=== PATIENT | female | born 1940 | race Caucasian/White ===

== ENCOUNTER 2017-03-19 07:43 | Day surgery (SDC) | payer MEDICARE, OTHER ==
[2017-03-19] MEDS ORDERED: MIDAZOLAM 2 MG/2 ML INJ ONE (08:13)
[2017-03-19] MEDS ORDERED: GLYCOPYRROLATE INJ 0.4 MG/2 ML VIAL ONE (08:13)
[2017-03-19] MEDS ORDERED: NALOXONE HCL INJ/PF 0.4 MG/1 ML SDV ONE (08:13)
[2017-03-19] MEDS ORDERED: ONDANSETRON HCL INJ/PF 4 MG/2 ML SDV ONE (08:13)
[2017-03-19] MEDS ORDERED: FENTANYL CITRATE INJ/PF 100 MCG/2 ML AMPUL ONE (08:14)
[2017-03-19] MEDS ORDERED: EPINEPHRINE INJ 1 MG/10 ML DISP.SYRIN ONE (08:14)
[2017-03-19] MEDS ORDERED: FLUMAZENIL INJ 0.5 MG/5 ML VIAL IV ONE (08:14)
[2017-03-19] MEDS ORDERED: GLUCAGON,HUMAN RECOMB 1 MG INJ ONE (08:14)
--- NOTE | 2017-03-19 09:06 | Operative Report ---
Operative Report DATE OF SURGERY: 03/19/17 PREOPERATIVE DIAGNOSIS: 1. Personal history of breast carcinoma. 2. Screening for colon carcinoma POSTOPERATIVE DIAGNOSIS: External hemorrhoids, collapsed. Normal colon OPERATION: Total colonoscopy to cecum with photo documentation SURGEON: GELY KELLY ANESTHESIA: Moderate Sedation TISSUE REMOVED OR ALTERED: None COMPLICATIONS: None ESTIMATED BLOOD LOSS: None INTRAOPERATIVE FINDINGS: See below PROCEDURE: Obtaining informed consent the patient was taken from the preoperative holding area to the main endoscopy suite where monitoring devices were attached to the patient. Plan and surgical timeout were conducted The patient was placed in the left lateral decubitus position with knees to chest. A perianal examination was performed. There was no visible or palpable anorectal pathology. Sphincter tone was felt to be normal. There are moderate collapsed external hemorrhoids. The flexible adult colonoscope was advanced through the anal rectal canal, all the way to the cecum. Utilization of the cecum was achieved and the ileocecal valve, the appendiceal orifice and transillumination of the anterior abdominal wall. Were taken. This was an excellent study on the well-prepped bowel. The colonoscope was withdrawn slowly and methodically checked and the mucosa carefully. There was no evidence of tumor, stricture, bleeding or polyp. There was no evidence of diverticuloses. The scope was slowly withdrawn through the anal rectal canal. Complete visualization of the rectum was achieved with photodocumentation. The scope was withdrawn to the patient's anus. The patient tolerated the procedure well and was taken to the recovery area in stable condition. Per surveillance guidelines patient will be appropriate candidate for follow-up colonoscopy in 7-10 years.
--- NOTE | 2017-03-19 09:08 | PDOC DISCHARGE SUMMARY ---
Discharge Summary (SDC) - Discharge Final Diagnosis: 1. External hemorrhoids 2. Normal colon Date of Surgery: 03/19/17 Discharge Date: 03/19/17 Condition: Good Treatment or Instructions: [facility] [address] [address] POST ENDOSCOPY DISCHARGE INSTRUCTIONS 1. Diet: Start clear liquids that a regular diet as tolerated. 2. Resume all preoperative medications. All oral anticoagulants and aspirins can be resumed 24 hours after procedure. 3. If a polypectomy was performed some bleeding per rectum may occur. This should stop within 3 days. If not, please contact the office. 4. If you had a colonoscopy you may experience some bloating and delayed return of normal bowel function for several days, your regular bowel movement pattern should resume within a week. 5. Please contact [facility] at to make an appointment with Dr. Swartz for 1 to 3 weeks following procedure. 6. If you have any questions or concerns regarding your care,treatment plan or follow up, please contact our office. 7. Per clinical guidelines we recommend you undergo a repeat colonoscopy in 7 - 10 years Discharge Diet: As Tolerated Discharge Activity: Activity As Tolerated Home Care Assistance: None Needed Report the Following to Your Physician Immediately: Shortness of Breath, Increase in Pain, Fever over 101 Degrees
[2017-03-19 10:04] VITALS: BP 110/68
== END 2017-03-19 10:05 | disposition home or self-care (01) ==
LOC: END 07:43
PROVIDERS: ATTEND Surgery
PROC: 0DJD8ZZ Inspection of Lower Intestinal Tract, Via Natural or Artificial Opening Endoscopic (ICD-10-PCS; principal; 2017-03-19 08:15)
DX: Z12.11 Encounter for screening for malignant neoplasm of colon (principal); K64.4 Residual hemorrhoidal skin tags; E78.00 Pure hypercholesterolemia, unspecified; M79.7 Fibromyalgia; I10 Essential (primary) hypertension; Z85.828 Personal history of other malignant neoplasm of skin
CPT/HCPCS: 45378; G0121; J0171; J1610; J2250; J2310; J2405; J3010; J3490

== ENCOUNTER 2019-05-26 10:38 | Emergency (ER) | payer MEDICARE, OTHER ==
--- NOTE | 2019-05-26 12:06 | ER Document Report ---
ED Medical Screen (RME) - General Chief Complaint: Fall Injury Stated Complaint: HEAD LACERATION Time Seen by Provider: 05/26/19 11:57 Primary Care Provider: LISSETTE FREEMAN MD [Primary Care Provider] - Follow up as needed Information source: Patient Notes: 78-year-old female presented to ED for complaint of pain to the back of her head. She states she was trying to put the cat out when the count got between her legs trip and her causing her to fall hitting her head on the side of the bed causing a laceration to the back of her head. Patient is alert and oriented at this time. The knee is under control at this time. Patient is alert oriented respirations regular nonlabored. I have greeted and performed a rapid initial assessment of this patient. A comprehensive ED assessment and evaluation of the patient, analysis of test results and completion of medical decision making process will be conducted by an additional ED providers. TRAVEL OUTSIDE OF THE [place] IN LAST 30 DAYS: No - Related Data Allergies/Adverse Reactions: codeine Allergy (Intermediate, Verified 03/19/17 08:07) N/V coffee (Coffea arabica) Allergy (Intermediate, Verified 03/19/17 08:07) N/V Past Medical History - Social History Chew tobacco use (# tins/day): No Frequency of alcohol use: None Drug Abuse: None - Past Medical History Cardiac Medical History: Reports: Hx Hypertension Denies: Hx Heart Attack Pulmonary Medical History: Denies: Hx Asthma, Hx Bronchitis, Hx COPD, Hx Pneumonia Neurological Medical History: Denies: Hx Cerebrovascular Accident, Hx Seizures Musculoskeltal Medical History: Reports Hx Arthritis Past Surgical History: Denies: Hx Hysterectomy - Immunizations Hx Diphtheria, Pertussis, Tetanus Vaccination: Yes Physical Exam - Vital signs Vitals: Temp Pulse Resp BP Pulse Ox 98.1 F 74 16 174/99 H 100 05/26/19 10:45 05/26/19 10:45 05/26/19 10:45 05/26/19 10:45 05/26/19 10:45 Course - Vital Signs Vital signs: Temp Pulse Resp BP Pulse Ox 97.8 F 74 15 165/94 H 99 05/26/19 11:55 05/26/19 11:55 05/26/19 11:55 05/26/19 11:55 10/17/19 11:55 Doctor's Discharge - Discharge Referrals: LISSETTE FREEMAN MD [Primary Care Provider] - Follow up as needed
[2019-05-26] MEDS ORDERED: LIDOCAINE 1%/EPINEPHRINE INJ 20 ML VIAL INJ ONE (12:52)
--- NOTE | 2019-05-26 12:58 | RADIOLOGY REPORT (SQ) ---
EXAM DESCRIPTION: CT HEAD WITHOUT COMPLETED DATE/TIME: 05/26/2019 12:42 pm REASON FOR STUDY: fell hit head on the bed COMPARISON: None. TECHNIQUE: Axial images acquired through the brain without intravenous contrast. Images reviewed wi th bone, brain and subdural windows. Additional sagittal and coronal reconstructions were generated. Images stored on PACS. All CT scanners at this facility use dose modulation, iterative reconstruction, and/or weight based d osing when appropriate to reduce radiation dose to as low as reasonably achievable (ALARA). [facility]: Dose Right [facility]: CareDose [facility]: Dose Right [facility]: Teradose 4D [facility]: Smart NEURONIX RADIATION DOSE: CT Rad equipment meets quality standard of care and radiation dose reduction techniq ues were employed. CTDIvol: 53.2 mGy. DLP: 964 mGy-cm. mGy. LIMITATIONS: None. FINDINGS: VENTRICLES: Normal size and contour. CEREBRUM: No masses. No hemorrhage. No midline shift. No evidence for acute infarction. Extensive areas of low density in the white matter most likely chronic small vessel ischemic changes. CEREBELLUM: No masses. No hemorrhage. No alteration of density. No evidence for acute infarction. EXTRAAXIAL SPACES: No fluid collections. No masses. ORBITS AND GLOBE: No intra- or extraconal masses. Normal contour of globe without masses. CALVARIUM: No fracture. PARANASAL SINUSES: No fluid or mucosal thickening. SOFT TISSUES: No mass or hematoma. OTHER: No other significant finding. IMPRESSION: No acute intracranial pathology. Advanced periventricular and deep white matter hypoden sity, which may reflect small vessel white matter disease or alternately sequelae of demyelinating di sease such as multiple sclerosis. Correlate with clinical history if present. EVIDENCE OF ACUTE STROKE: NO. COMMENT: Quality ID # [id number]: Final reports with documentation of one or more dose reduction techniques (e.g., Automated exposure control, adjustment of the mA and/or kV according to patient size, use of iterative reconstruction technique) TECHNICAL DOCUMENTATION: JOB ID: [id number] [employer]- All Rights Reserved Reading location - IP/workstation name: [email or web address]
--- NOTE | 2019-05-26 13:00 | ER Document Report ---
ED Fall - General Chief Complaint: Fall Injury Stated Complaint: HEAD LACERATION Time Seen by Provider: 05/26/19 11:57 Primary Care Provider: LISSETTE FREEMAN MD [Primary Care Provider] - Follow up as needed Information source: Patient TRAVEL OUTSIDE OF THE [place] IN LAST 30 DAYS: No - HPI Patient complains to provider of: fall Occurred: Just prior to arrival - pt. fell after tripping on her cat earlier this am and hit her head, causing a laceration. There was no LOC. Pt. is currently not on blood thinner. She is UTD on tetanus. - Related data Allergies/Adverse Reactions: codeine Allergy (Intermediate, Verified 03/19/17 08:07) N/V coffee (Coffea arabica) Allergy (Intermediate, Verified 03/19/17 08:07) N/V Past Medical History - General Information source: Patient - Social History Smoking Status: Never Smoker Chew tobacco use (# tins/day): No Frequency of alcohol use: None Drug Abuse: None Family History: None Patient has suicidal ideation: No Patient has homicidal ideation: No - Past Medical History Cardiac Medical History: Reports: Hx Hypertension Denies: Hx Heart Attack Pulmonary Medical History: Denies: Hx Asthma, Hx Bronchitis, Hx COPD, Hx Pneumonia Neurological Medical History: Denies: Hx Cerebrovascular Accident, Hx Seizures Musculoskeletal Medical History: Reports Hx Arthritis Past Surgical History: Denies: Hx Hysterectomy - Immunizations Hx Diphtheria, Pertussis, Tetanus Vaccination: Yes Review of Systems - Review of Systems Constitutional: No symptoms reported EENT: No symptoms reported Cardiovascular: No symptoms reported Respiratory: No symptoms reported Gastrointestinal: No symptoms reported Genitourinary: No symptoms reported Female Genitourinary: No symptoms reported Musculoskeletal: No symptoms reported Neurological/Psychological: No symptoms reported -: Yes All other systems reviewed and negative Physical Exam - Vital signs Vitals: Temp Pulse Resp BP Pulse Ox 98.1 F 74 16 174/99 H 100 05/26/19 10:45 05/26/19 10:45 05/26/19 10:45 05/26/19 10:45 05/26/19 10:45 - General General appearance: Appears well In distress: None - HEENT Head: Open wounds - there is a 4 cm laceration in the occipital aspect of the scalp. Bleeding is controlled. Pupils: PERRL Ears: Normal Tympanic membrane: Normal Nasal: Normal Pharynx: Normal Neck: Normal - Respiratory Respiratory status: No respiratory distress Breath sounds: Normal - Cardiovascular Rhythm: Regular Heart sounds: Normal auscultation Murmur: No - Abdominal Inspection: Normal Bowel sounds: Normal Tenderness: Nontender Organomegaly: No organomegaly - Back Back: Normal, Nontender - Extremities General upper extremity: Normal inspection General lower extremity: Normal inspection - Neurological Neuro grossly intact: Yes Cognition: Normal Orientation: AAOx4 Speech: Normal Course - Re-evaluation Re-evalutation: 05/26/19 13:14 I have discussed with this pt. about her L thyroid lesion found on CT and she will F/u with her PCP (U/S has been recommended) - Vital Signs Vital signs: Temp Pulse Resp BP Pulse Ox 97.8 F 74 15 165/94 H 99 05/26/19 11:55 05/26/19 11:55 05/26/19 11:55 05/26/19 11:55 05/26/19 11:55 - Diagnostic Test Radiology reviewed: Reports reviewed - ct head and c-spine - neg Procedures - Laceration/Wound Repair Head Time completed: 14:01 Wound length (cm): 6 Wound's Depth, Shape: Superficial Laceration pre-procedure: Sterile PPE donned, Sterile drapes applied, Shur-Clens applied Anesthetic type: 1% Lidocaine w/epi Volume Anesthetic (mLs): 2 Wound explored: Clean Irrigated w/ Saline (mLs): 500 Wound Repaired With: Ulices Number of Sutures: 11 Post-procedure wound care: Sterile dressing applied Complications: No Discharge - Discharge Clinical Impression: Laceration of head Qualifiers: Encounter type: initial encounter Location of open wound of head: scalp Foreign body presence: without foreign body Qualified Code(s): S01.01XA - Laceration without foreign body of scalp, initial encounter Condition: Stable Disposition: HOME, SELF-CARE Instructions: Antibiotic Ointment Protection ([facility]), Laceration Care ([facility]), Soap Cleansing ([facility]) Additional Instructions: rest, ulices out in 7 days, return if worse Forms: Return to Work Referrals: LISSETTE FREEMAN MD [Primary Care Provider] - Follow up as needed
--- NOTE | 2019-05-26 13:00 | RADIOLOGY REPORT (SQ) ---
EXAM DESCRIPTION: CT CERVICAL SPINE WITHOUT COMPLETED DATE/TIME: 05/26/2019 12:41 pm REASON FOR STUDY: fell hit head on jbed COMPARISON: None. TECHNIQUE: Axial images acquired through the cervical spine without intravenous contrast. Images re viewed with lung, soft tissue and bone windows. Reconstructed coronal and sagittal MPR images review ed. Images stored on PACS. All CT scanners at this facility use dose modulation, iterative reconstruction, and/or weight based d osing when appropriate to reduce radiation dose to as low as reasonably achievable (ALARA). [facility]: Dose Right [facility]: CareDose [facility]: Dose Right [facility]: Teradose 4D [facility]: Smart Deep Domain RADIATION DOSE: CT Rad equipment meets quality standard of care and radiation dose reduction techniq ues were employed. CTDIvol: 12.9 mGy. DLP: 258 mGy-cm. mGy. LIMITATIONS: None. FINDINGS: ALIGNMENT: Anatomic. MINERALIZATION: Normal. VERTEBRAL BODIES: No fractures or dislocation. DISCS: There is narrowing at C6-7 with marginal osteophytes. FACETS, LATERAL MASSES, POSTERIOR ELEMENTS: No fractures. No dislocation. No acute findings. HARDWARE: None in the spine. VISUALIZED RIBS: No fractures. LUNG APICES AND SOFT TISSUES: No significant or acute findings. OTHER: 2 cm low-density lesion in the inferior pole of the left lobe of the thyroid gland. IMPRESSION: No acute finding in the cervical spine. Degenerative disc disease and spondylosis. The re is a left thyroid lesion for which ultrasound is recommended. TECHNICAL DOCUMENTATION: JOB ID: [id number] Quality ID # [id number]: Final reports with documentation of one or more dose reduction techniques (e.g., Au tomated exposure control, adjustment of the mA and/or kV according to patient size, use of iterative reconstruction technique) 2010 [employer]- All Rights Reserved Reading location - IP/workstation name: [email or web address]
[2019-05-26 14:36] VITALS: BP 135/76
== END 2019-05-26 14:36 | disposition home or self-care (01) ==
LOC: ER 10:38
DX: S01.01XA Laceration without foreign body of scalp, initial encounter (principal); W01.0XXA Fall on same level from slipping, tripping and stumbling without subsequent striking against object, initial encounter; E07.9 Disorder of thyroid, unspecified; I10 Essential (primary) hypertension; Z88.5 Allergy status to narcotic agent; Z91.018 Allergy to other foods
CPT/HCPCS: 70450; 72125; 12002; J3490; 99283

== ENCOUNTER → 2020-02-25 | Outpatient (CLI) | payer MEDICARE, OTHER ==
--- NOTE | 2020-02-27 08:59 | RADIOLOGY REPORT (SQ) ---
EXAM DESCRIPTION: MRI HEAD COMBO IMAGES COMPLETED DATE/TIME: 02/25/2020 11:16 am REASON FOR STUDY: (H91.90)UNSPECIFIED HEARING LOSS, UNSPECIFIED EAR;(R42)DIZZINESS AND GIDDIN H91.90 UNSPECIFIED HEARING LOSS, UNSPECIFIED EAR R42 DIZZINESS AND GIDDINESS COMPARISON: CT brain 05/26/2019 TECHNIQUE: Multiplanar imaging includes noncontrasted T1, T2, FLAIR, diffusion with ADC map and post gadolinium contrast T1 sequences. Additional thin section axial T2 weighted images through the internal auditory canals, additional thi n section axial and coronal T1 pre and post-contrast through the internal auditory canals and inner e ar structures. Images stored on PACS. CONTRAST TYPE AND DOSE: 10 mL Prohance. RENAL FUNCTION: Not indicated. ACR Type II contrast agent associated with few, if any, unconfounded cases of NSF LIMITATIONS: None. FINDINGS: ANATOMY: No congenital anomalies. Normal vascular flow voids. Pituitary fossa normal. CSF SPACES: Rim subdural hemorrhage present over the right temporoparietal region measuring about 5 t o mm greatest thickness. Bright on T1 and bright dark signal on T2, likely acute/early subacute (1 t o 1-month-old). Mild local mass effect with flattening of gyral surfaces. No midline shift. There is trace left posterior temporoparietal subdural hemorrhage measuring less than 2 mm. This bes t shown on precontrast T1 weighted images 10-. This also likely represents tiny acute or early sub acute subdural hemorrhage. No local mass effect. These findings were called to Dr. Arias 0800 hours 02/27/2020. CEREBRUM: Diffusion-weighted images are negative for acute. Extensive increased FLAIR/signal throughout the mid dorys throughout the hemispheric white matter. Ex tensive chronic white matter disease in the basal ganglia right and left thalamus. POSTERIOR FOSSA: No signal alteration. No hemorrhage. No edema, masses, or mass effect. Internal kvng tory canals, cerebellopontine angles, mastoids normal. No enhancing lesions. No abnormal enhancement post contrast. DIFFUSION IMAGING: Negative for acute or subacute infarction. ORBITS: No masses. Globes post cataract surgery. PARANASAL SINUSES: No fluid levels. Mucosa normal. OTHER: No other significant finding. IMPRESSION: Acute or early subacute subdural hemorrhages along the right and left posterior temporal / parietal right greater than left. Findings discussed with Dr. Arias EVIDENCE OF ACUTE STROKE: NO. COMMENT: Acute or early subacute subdural hemorrhages, called to Dr. Arias TECHNICAL DOCUMENTATION: JOB ID: [id number] 2010 [employer]- All Rights Reserved Reading location - IP/workstation name: [email or web address]
== END ==
LOC: RAD 09:58
PROVIDERS: ATTEND Otolaryngology
DX: I62.01 Nontraumatic acute subdural hemorrhage (principal); H91.90 Unspecified hearing loss, unspecified ear; R42 Dizziness and giddiness; R51 Headache; R93.0 Abnormal findings on diagnostic imaging of skull and head, not elsewhere classified
CPT/HCPCS: 82565; 70553; A9576